=== PATIENT | female | born 1965 | race Caucasian/White ===

== ENCOUNTER 2019-07-13 11:26 | Observation (INO) | payer OTHER ==
[~2019-07-13] VITALS: Ht 172.7 cm; Wt 135.6 kg
[~2019-07-13 11:26] MED LIST: CETI10TA22 PO; CHOL200027 PO; GLUC-142 PO; IV RINGERS,LACTATED 1000ML 1,000 ML IV SCH; LIDOCAINE 1% PF 2 ML VIAL. ID PRN; MULT-121 PO; ONDANSETRON PF 4 MG/2 ML VIAL. IV PRN; PROCHLORPERAZINE 10 MG/2 ML VIAL. IV PRN; UBID50TA PO; VITA1TAB19 PO; fentaNYL PF VIAL 100 MCG/2 ML VIAL IV PRN
[2019-07-13] MEDS ORDERED: LIDOCAINE 2% PF 5 ML VIAL. ONE (11:56)
[2019-07-13] MEDS ORDERED: PROPOFOL 20 ML IV ONE (11:56)
[2019-07-13] MEDS ORDERED: SUCCINYLCHOLINE 200 MG/10 ML VIAL. ONE (11:56)
[2019-07-13] MEDS ORDERED: fentaNYL PF VIAL 100 MCG/2 ML VIAL ONE ×3 (11:56→15:21)
[2019-07-13] MEDS ORDERED: FAMOTIDINE 20 MG/2 ML VIAL ONE (11:56)
[2019-07-13] MEDS ORDERED: ONDANSETRON PF 4 MG/2 ML VIAL. ONE (11:56)
[2019-07-13] MEDS ORDERED: MIDAZOLAM HCL/PF 2 MG/2 ML VIAL. ONE (11:56)
[2019-07-13] MEDS ORDERED: DEXAMETHASONE SOD PHOS 4 MG/ML VIAL ONE (11:56)
[2019-07-13] MEDS ORDERED: SEVOFLURANE > 120 MINUTES. IH ONE ×2 (12:20→16:44)
[2019-07-13] MEDS ORDERED: LIDOCAINE 1%/EPI 1:100,000 20 ML VIAL. ONE (12:37)
[2019-07-13] MEDS ORDERED: EPINEPHrine VIAL 30 MG/30 ML VIAL ONE (12:38)
[2019-07-13] MEDS ORDERED: LIDOCAINE 2% TOPICAL JELLY 5GM TUBE. TP ONE (12:45)
[2019-07-13] MEDS ORDERED: CLINDAMYCIN 900MG PREMIX 50 ML IV ONE ×2 (12:45→13:00)
--- NOTE | 2019-07-13 12:50 | PDOC1 ---
History and Physical Date of Admission Date of Admission DATE: 07/13/19 TIME: 12:44 Identification/Chief Complaint Chief Complaint left parotid mass Source Source: Patient History of Present Illness History of Present Illness 54 year old female with left parotid mass. This mass has slowly grown over the past 15 years. It is now causing dull, intermittent pain. CT imaging showed 2.9cm mass within left superficial parotid gland. FNA completed was consistent with pleomorphic adenoma. Past Medical History Cardiovascular: HTN Musculoskeletal: Osteoarthritis Past Surgical History Past Surgical History: Other (abdominal surgery) Social History Smoke: No ALCOHOL: none Drugs: None Current Problem List Problem List parotid neoplasm Current Medications Current Medications Current Medications Ondansetron HCl (Zofran) 4 mg PRN Q6HRS PRN IV NAUSEA/VOMITING; Start 07/13/19 at 07:00; Stop 07/14/19 at 06:59 Fentanyl Citrate (Fentanyl 2ml Vial) 25 mcg PRN Q5MIN PRN IV MILD PAIN 1-3; Start 07/13/19 at 07:00; Stop 07/14/19 at 06:59 Fentanyl Citrate (Fentanyl 2ml Vial) 50 mcg PRN Q5MIN PRN IV MODERATE TO SEVERE PAIN; Start 07/13/19 at 07:00; Stop 07/14/19 at 06:59 Ringer's Solution 1,000 ml @ 30 mls/hr Q24H IV Last administered on 07/13/19at 12:13; Start 07/13/19 at 07:00; Stop 07/13/19 at 18:59 Lidocaine HCl (Xylocaine-Mpf 1% 2ml Vial) 2 ml PRN 1X PRN ID PRIOR TO IV START; Start 07/13/19 at 07:00; Stop 07/14/19 at 06:59 Prochlorperazine Edisylate (Compazine) 5 mg PACU PRN PRN IV NAUSEA, MRX1; Start 07/13/19 at 07:00; Stop 07/14/19 at 06:59 Propofol 20 ml @ As Directed STK-MED ONCE IV ; Start 07/13/19 at 11:56; Stop 07/13/19 at 11:56; Status DC Dexamethasone Sodium Phosphate (Decadron) 4 mg STK-MED ONCE .ROUTE ; Start 07/13/19 at 11:56; Stop 07/13/19 at 11:56; Status DC Famotidine (Pepcid Vial) 20 mg STK-MED ONCE .ROUTE ; Start 07/13/19 at 11:56; Stop 07/13/19 at 11:56; Status DC Lidocaine HCl (Lidocaine Pf 2% Vial) 5 ml STK-MED ONCE .ROUTE ; Start 07/13/19 at 11:56; Stop 07/13/19 at 11:56; Status DC Ondansetron HCl (Zofran) 4 mg STK-MED ONCE .ROUTE ; Start 07/13/19 at 11:56; Stop 07/13/19 at 11:56; Status DC Succinylcholine Chloride (Anectine) 200 mg STK-MED ONCE .ROUTE ; Start 07/13/19 at 11:56; Stop 07/13/19 at 11:56; Status DC Fentanyl Citrate (Fentanyl 2ml Vial) 100 mcg STK-MED ONCE .ROUTE ; Start 07/13/19 at 11:56; Stop 07/13/19 at 11:56; Status DC Midazolam HCl (Versed) 2 mg STK-MED ONCE .ROUTE ; Start 07/13/19 at 11:56; Stop 07/13/19 at 11:56; Status DC Sevoflurane (Ultane) 90 ml STK-MED ONCE IH ; Start 07/13/19 at 12:20; Stop 07/13/19 at 12:21; Status DC Lidocaine/ Epinephrine (LIDOCAINE 1%-EPI 1:100,000 Multi-Dose) 20 ml STK-MED ONCE .ROUTE ; Start 07/13/19 at 12:37; Stop 07/13/19 at 12:37; Status DC Epinephrine HCl (Adrenalin) 30 mg STK-MED ONCE .ROUTE ; Start 07/13/19 at 12:38; Stop 07/13/19 at 12:38; Status DC Active Scripts Active Reported Zyrtec (Cetirizine Hcl) 10 Mg Tablet 10 Mg PO DAILY Osteo Bi-Flex Tablet (Glucosamine/D3/Boswellia Jazmyn) 1 Each Tablet 1 Each PO DAILY Multiple Vitamins (Multivitamin) 1 Each Tablet 1 Tab PO DAILY Coq10 (Ubidecarenone) 50 Mg Tab.chew 100 Mg PO DAILY B Complex (Vitamin B Complex) 1 Each Tablet 1 Each PO DAILY Vitamin D3 (Cholecalciferol (Vitamin D3)) 2,000 Unit Tablet 2,000 Unit PO DAILY Allergies Allergies: Coded Allergies: sulfamethoxazole (Verified Allergy, Severe, 07/10/19) BLISTERS IN THROAT trimethoprim (Verified Allergy, Severe, 07/10/19) BLISTERS IN THROAT Penicillins (Verified Allergy, Intermediate, Hives, 07/10/19) amoxicillin (Verified Allergy, Intermediate, Hives, 07/10/19) acetaminophen (Verified Adverse Reaction, Intermediate, 07/10/19) FLU-LIKE SYMPTOMS cefdinir (Verified Adverse Reaction, Intermediate, 07/10/19) COULDNT URINATE AFTER TAKING hydrocodone (Verified Adverse Reaction, Intermediate, 07/10/19) FLU-LIKE SYMPTOMS ketoconazole (Verified Adverse Reaction, Intermediate, 07/10/19) BLISTERS morphine (Verified Adverse Reaction, Intermediate, Itching, 07/10/19) nitrofurantoin (Verified Adverse Reaction, Intermediate, Nausea and Vomiting, 07/10/19) doxycycline (Verified Adverse Reaction, Unknown, 07/10/19) DIFFICULTY SWALLOWING ROS General: No: Chills, Night Sweats, Fatigue, Malaise, Appetite, Other PSYCHOLOGICAL ROS: No: Anxiety, Behavioral Disorder, Concentration difficultie, Decreased libido, Depression, Disorientation, Hallucinations, Hostility, Irritablity, Memory difficulties, Mood Swings, Obsessive thoughts, Physical abuse, Sexual abuse, Sleep disturbances, Suicidal ideation, Other Eyes: No Blurry vision, No Decreased vision, No Double vision, No Dry eyes, No Excessive tearing, No Eye Pain, No Itchy Eyes, No Loss of vision, No Photophobia, No Scotomata, No Uses contacts, No Uses glasses, No Other HEENT: No: Heacaches, Visual Changes, Hearing change, Nasal congestion, Nasal discharge, Oral lesions, Sinus pain, Sore Throat, Epistaxis, Sneezing, Snoring, Tinnitus, Vertigo, Vocal changes, Other ALLERGY AND IMMUNOLOGY: No: Hives, Insect Bite Sensitivity, Itchy/Watery Eyes, Nasal Congestion, Post Nasal Drip, Seasonal Allergies, Other Hematological and Lymphatic: No: Bleeding Problems, Blood Clots, Blood Transfusions, Brusing, Night Sweats, Pallor, Swollen Lymph Nodes, Other ENDOCRINE: No: Breast Changes, Galactorrhea, Hair Pattern Changes, Hot Flashes, Malaise/lethargy, Mood Swings, Palpitations, Polydipsia/polyuria, Skin Changes, Temperature Intolerance, Unexpected Weight Changes, Other Respiratory: No: Cough, Hemoptysis, Orthopnea, Pleuritic Pain, Shortness of breath, SOB with excertion, Sputum Changes, Stridor, Tachypnea, Wheezing, Other Genitourinary: No Dysuria, No Frequency, No Incontinence, No Hematuria, No Retention, No Discharge, No Urgency, No Pain, No Flank Pain, No Other, No , No , No , No , No , No , No Musculoskeletal: No Gait Disturbance, No Joint Pain, No Joint Stiffness, No Joint Swelling, No Muscle Pain, No Muscular Weakness, No Pain In:, No Swelling In:, No Other Neurological: No Behavorial Changes, No Bowel/Bladder ControlChng, No Confusion, No Dizziness, No Gait Disturbance, No Headaches, No Impaired Coord/balance, No Memory Loss, No Numbness/Tingling, No Seizures, No Speech Problems, No Tremors, No Visual Changes, No Weakness, No Other Skin: No Dry Skin, No Eczema, No Hair Changes, No Lumps, No Mole Changes, No Mottling, No Nail Changes, No Pruritus, No Rash, No Skin Lesion Changes, No Other, No Acne Physical Exam General: Alert, Oriented X3, Cooperative, No acute distress HEENT: Atraumatic, PERRLA, EOMI, Mucous membr. moist/pink, Other (3cm palpable, mobile mass in left parotid tail) Lungs: Clear to auscultation, Normal air movement Heart: RRR, no gallops, no murmurs Abdomen: Soft Extremities: No edema Skin: No rashes, No breakdown Neuro: Normal gait, Normal speech Vitals Vitals Vital Signs Date Time Temp Pulse Resp B/P (MAP) Pulse Ox O2 Delivery O2 Flow Rate FiO2 07/13/19 12:06 98.3 82 16 155/84 99 Room Air 98.3 VTE Prophylaxis Ordered VTE Prophylaxis Devices: Yes VTE Pharmacological Prophylaxi: No Assessment/Plan Assessment/Plan 54 year old female with left parotid mass, consistent with pleomorphic adenoma. - To OR for left superficial parotidectomy. Informed consent reviewed today. SANJAY LUNA MD Jul 13, 2019 12:50
[2019-07-13] MEDS ORDERED: EPINEPHRINE INJ ONE (13:00)
[2019-07-13] MEDS ORDERED: NORMAL SALINE INJ ONE (13:00)
[2019-07-13] MEDS ORDERED: ePHEDrine PF IN SALINE 50 MG/10 ML SYRINGE. IV ONE (14:06)
[2019-07-13] MEDS ORDERED: CHONDROIT-SOD-HYALURONATE KIT. ONE (17:07)
[2019-07-13] MEDS ORDERED: MUPIROCIN 2 % NASAL OINTMENT 22GM TUBE. ONE (17:33)
[2019-07-13] MEDS: IV NORMAL SALINE 1000ML BAG 1,000 ML IV SCH (18:20)
--- NOTE | 2019-07-13 18:20 | PDOC4 ---
IMMEDIATE POST OP NOTE Date: Jul 13, 2019 Pre-Op Diagnosis left parotid mass Post-Op Diagnosis BUTCH Procedure Performed left superficial parotidectomy Surgeon Dr. Nasima Galvan Director Of Adult Epilepsy Dr. Anita Nance (co-surgeon) Anesthesiologist Dr. Rogel Anesthesia Type: General Blood Loss 30mL Specimens Obtained left superficial parotid Findings 1. 3cm mass within mid superficial parotid gland, just superficial to facial nerve 2. Facial nerve and all branches intact and stimulated at the end of the case Complications none Operative Note Dictation #[id number] NASIMA GALVAN MD Jul 13, 2019 18:20
[2019-07-13] MEDS ORDERED: ACETAMINOPHEN 325 MG TABLET. PO PRN (18:30)
[2019-07-13] MEDS ORDERED: 0.9 % SODIUM CHLORIDE 10 ML DISP.SYRIN. IV PRN (18:30)
[2019-07-13] MEDS ORDERED: diphenhydrAMINE HCL 25 MG CAPSULE PO PRN (18:30)
[2019-07-13] MEDS ORDERED: ONDANSETRON PF 4 MG/2 ML VIAL. IVP PRN (18:30)
[2019-07-13] MEDS ORDERED: METOCLOPRAMIDE HCL 10 MG/2 ML VIAL. IV PRN (18:30)
[2019-07-13] MEDS ORDERED: oxyCODONE IR 5 MG TABLET PO PRN (18:30)
[2019-07-13 20:30] VITALS: BP_SYST 128; BP_SYST 158; BP_DIAS 77; BP_DIAS 86
[2019-07-13] MEDS: DOCUSATE SODIUM 100 MG CAPSULE. PO SCH (20:58)
[2019-07-13] MEDS: CELECOXIB 100 MG CAPSULE. PO SCH (20:58)
[2019-07-13 21:00] VITALS: BP 139/79
--- NOTE | 2019-07-13 21:22 | OP ---
DATE OF SURGERY: 07/13/2019 PREOPERATIVE DIAGNOSIS: Left parotid mass. POSTOPERATIVE DIAGNOSIS: Left parotid mass. PROCEDURE PERFORMED: Left superficial parotidectomy. SURGEON: Dr. Nasima Galvan. CO-SURGEON: Anita Nance MD. ANESTHESIA: General endotracheal anesthesia. ANESTHESIOLOGIST: Dr. Rajinder Rogel. INDICATIONS FOR SURGERY: The patient is a 54-year-old female with a 15-year history of a left parotid mass that has continued to slowly enlarge and cause pain and discomfort. On CT imaging, the patient was found to have a 3 cm mass within the superficial lobe of the parotid gland and fine needle aspiration was consistent with a pleomorphic adenoma. Due to the continued growth and potential risk of malignant transformation, the decision was made the patient undergo the above procedure after risks, benefits, and alternatives of surgery were thoroughly discussed with the patient and informed consent was obtained. ESTIMATED BLOOD LOSS: Less than 30 mL. SPECIMEN: Left superficial parotid gland was sent for permanent pathology. INTRAOPERATIVE FINDINGS: 1. A 3 cm mass within the mid superficial parotid gland just superficial to the facial nerve and its branches. 2. Facial nerve and all its branches were intact and stimulated at the end of the case. DESCRIPTION OF THE PROCEDURE: The patient was brought back to room per Anesthesia and intubated in standard fashion. The patient was then turned 90 degrees in the room. Shoulder roll was placed under her shoulders. The facial nerve monitor in all four branches were connected to the nerve integrity monitor. This was used throughout the case to ensure patient safety and for facial nerve monitoring. A planned modified Jesus incision in the standard fashion and this was injected in subcutaneous fashion with 1% lidocaine with 1:100,000 epinephrine, approximately 10 mL in total was injected. The patient was then prepped and draped in standard fashion. Dr. Nance scrubbed with me throughout this case and acted as a cosurgeon to help with monitoring of the facial nerve and to help with the dissection. A 15 blade was used to cut through the skin and subcutaneous tissue. I then elevated flaps of the skin anteriorly until I was proximal to the facial mass, which was approximately 3 cm located in the mid superficial lobe of the parotid gland. I dissected the inferior lobe of the parotid gland off of the sternocleidomastoid musculature and great auricular nerve. I then dissected the soft tissue anterior to the tragus. I continued my dissection deeply. I also dissected on the deep surface of the sternocleidomastoid musculature inferiorly and I brought these 2 planes together until I found the facial nerve inferiorly. I then traced all the branches of the facial nerve. I began inferiorly along the mentalis branch dissected the superficial parotid lobe away from this area. I continued to trace each branch in an open book fashion, dissecting the superficial parotid lobe between the branches traveling from inferior to superior. There was the 3 cm mass within the parotid gland, that was located at the split between the main inferior and superior trunks of the pes anserinus. There was a small communicating branch of the facial nerve that extended from the buccal branch to the inferior orbital oculi branch of the facial nerve. I carefully, in an open book fashion, dissected the superficial parotid lobe off of the facial nerve and all its branches and once I was safely completed the dissection the mass itself was included and that was not near the margin of the mass within the superficial parotid lobe. This mass and the entire lobe of the parotid gland was sent for permanent pathology. I then thoroughly irrigated the surgical bed and adequate hemostasis was confirmed. Using the nerve integrity monitor, I again stimulated all branches of the facial nerve, which appeared to be intact. A piece of 1:100,000 inch AlloDerm was then placed within the surgical bed as act as a barrier to prevent Deng's syndrome from occurring. This was sutured to the surrounding tissue and covered all the cut edges of the parotid gland and was sutured with 4-0 Vicryl suture was also trimmed to size and sutured in place. A 10-Yoruba fully fluted drain was brought out through a stab incision just posterior to our incision. This was sutured to the skin using 2-0 silk suture and then the drain was placed superficial to the AlloDerm within the surgical bed. Skin edges were then laid back in the correct position. I closed the deep dermal layer with buried interrupted sutures of 4-0 Vicryl and a horizontal mattress suture of 5-0 Prolene was used to close the skin. Mupirocin ointment was placed along the incision. The patient was then turned back over to anesthesia and awoken from anesthesia. She was transferred to the recovery room in stable condition. All sponge, needle and instrument counts were correct at the end of the case. COMPLICATIONS: None. DISPOSITION: Stable and transferred to recovery room. NASIMA GALVAN MD DR: Diandra JOB#: [id number] / [id number] BABS
[2019-07-13 21:30] VITALS: BP 151/78
[2019-07-13 23:00] VITALS: BP 115/59
[2019-07-13] MEDS: GABAPENTIN 300 MG CAPSULE. PO SCH (23:22)
--- NOTE | 2019-07-13 23:50 | NUR ---
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 Addendum: 07/14/19 at 0002 by NATO STRICKLAND RN Amended: Links added.
--- NOTE | 2019-07-14 00:04 | NUR ---
Pt. arrived on unit at 1935 from PACU. Pt. is A&Ox4, on RA, VSS. Pt.'s and daughter at bedside. Pt. does not complain of pain but would like to urinate. She becomes dizzy while trying to get up by makes it to bathroom safely. Pt. encourages to use call light when getting up. Will continue to monitor.
[2019-07-14 03:00] VITALS: BP 116/85
[2019-07-14] MEDS: IV NORMAL SALINE 1000ML BAG 1,000 ML IV SCH (04:20)
[2019-07-14] MEDS: GABAPENTIN 300 MG CAPSULE. PO SCH ×2 (06:19→14:54)
[2019-07-14 07:00] VITALS: BP 133/68
[2019-07-14] MEDS: CELECOXIB 100 MG CAPSULE. PO SCH (08:38)
[2019-07-14] MEDS: DOCUSATE SODIUM 100 MG CAPSULE. PO SCH (08:38)
[2019-07-14 11:00] VITALS: BP 117/59
[2019-07-14 15:00] VITALS: BP 112/62
[2019-07-14] MEDS ORDERED: ACET325T9 PO (17:17)
[2019-07-14] MEDS ORDERED: CELE100C PO (17:17)
[2019-07-14] MEDS ORDERED: GABA300C18 PO (17:17)
--- NOTE | 2019-07-14 18:48 | NUR ---
pt is discharged home with self care at 1810 via ambulation via KELSEY Trevizo. pt is in stable condition. pt has all belongings with her. pt received discharge instructions and prescriptions and stated she had no further questions for me.
--- NOTE | 2019-07-16 09:07 | PATHOLOGY ---
[facility] Accession Number: [id number] . 01 Material submitted: . parotid gland - LEFT SUPERFICIAL PAROTID GLAND. Modifiers: left . 01 Clinical history: . Mass of parotid gland. . 02 Diagnosis: Segment of parotid gland, left: - Pleomorphic adenoma, forming a well circumscribed mass measuring 3.1 cm in greatest dimension. - Inked margins of excision negative for tumor. - Focal mild chronic inflammation within surrounding parotid gland. LBQ 07/16/2019 0815 Local . 02 Comment: There is no evidence of malignancy. (JPM/db; 07/15/2019) . 02 Electronically signed: . Espinoza Spangler MD, Pathologist NPI- [id number] . 01 Gross description: . Received in formalin labeled "Janett Tipton, left superficial parotid gland" is a 21 g, 5.1 x 4.3 x 2.0 cm casillas-yellow parotid gland. The external surface is inked black. The specimen is serially sectioned to reveal a casillas-white nodular mass measuring 3.1 x 2.8 x 1.9 cm. The mass is well circumscribed, and measures 0.1 cm from the inked external surfaces. The mass has focal hemorrhagic areas. The uninvolved parotid gland is yellow and lobulated. Multiple Tube Winding Machine Operator sections of the specimen are submitted in cassettes A1-A5. ([facility]; 07/14/2019) SY/[facility] 07/15/2019 1605 Local . 02 Pathologist provided ICD-10: D11.0 . 02 CPT . 681255 Specimen Comment: A courtesy copy of this report has been sent to [phone] Specimen Comment: Report sent to Performed at: [address], [place], [place] [id number] MD Roland Eagle MD Phone: [phone] Performed at: [address] [id number] MD Espinoza Spangler MD Phone: [phone]
== END 2019-07-14 18:10 | disposition home or self-care (01) ==
LOC: SURG 11:26 → 4 NORTH 18:45
PROVIDERS: ADMIT Otolaryngology; ATTEND Otolaryngology
DX: C07 Malignant neoplasm of parotid gland (principal); I10 Essential (primary) hypertension
CPT/HCPCS: 42410; A7015; G0378; G0379; J0171; J0330; J1100; J2001; J2250; J2405; J2704; J3010; J3490; J7030; J7120; 88307; A4461; Q4116